=== PATIENT | female | born 1995 | race Caucasian/White ===

== ENCOUNTER 2022-05-08 18:08 | Outpatient (REF) | payer OTHER, SELFPAY ==
[2022-05-08 21:20] LABS: Anion Gap 7.5 mmol/L (3-11); BUN 7 mg/dL (7-18); CO2 30.5 mmol/L (21.0-32.0); CREATININE 0.9 mg/dL (0.55-1.02); Calcium 9.6 mg/dL (8.5-10.1); Chloride 102 mmol/L (98-107); Estimated GFR 90.98 (mL/min/1.73m2); Glucose 108 mg/dL (74-106); Sodium 140 mmol/L (136-145)
== END 2022-05-08 18:09 | disposition home or self-care (01) ==
LOC: NCHCN 18:08
PROVIDERS: Visit Provider Registered Nurse
DX: R00.2 Palpitations (principal); Z79.899 Other long term (current) drug therapy
CPT/HCPCS: 80048

== ENCOUNTER 2023-07-30 17:02 | Outpatient (REF) | payer OTHER, SELFPAY ==
[2023-07-30 20:53] LABS: Anion Gap 10.2 mmol/L (3-11); BUN 8 mg/dL (7-18); CO2 26.8 mmol/L (21.0-32.0); CREATININE 0.9 mg/dL (0.55-1.02); Calcium 9.2 mg/dL (8.5-10.1); Chloride 105 mmol/L (98-107); Estimated GFR 89.86 (mL/min/1.73m2); Glucose 109 mg/dL (74-106); Potassium 3.8 mmol/L (3.5-5.1); Sodium 142 mmol/L (136-145)
== END 2023-07-30 17:03 | disposition home or self-care (01) ==
LOC: NCHCN 17:02
PROVIDERS: Visit Provider Family Medicine
DX: Z01.818 Encounter for other preprocedural examination (principal)
CPT/HCPCS: 80048

== ENCOUNTER 2024-07-26 20:23 | Outpatient (REF) | payer BC, SELFPAY ==
[2024-07-26 22:25] LABS: HCT 45.2 % (36.0-46.0); HGB 15.3 g/dL (11.2-15.7); MCHC 33.8 % (32.0-36.0); MCV 92 fL (80-95); MPV 9.5 fL (8.0-11.0); Platelet Count 295 10^3/uL (130-400); RBC 4.93 10^6/uL (3.93-5.22); RDW 11.9 % (11.7-14.6); RDW-SD 39.8 fL; WBC 8.05 10^3/uL (4.4-10.8)
[2024-07-26 22:26] LABS: ESR < 1 mm/hr (0-20)
[2024-07-27 18:19] LABS: CRP, High Sensitivity 0.83 mg/L (See Note); Rheumatoid Factor <8.6 IU/mL (<12.0)
[2024-07-28 10:44] LABS: Lyme Ab w Rflx to Lyme Confirm Negative (Negative)
[2024-07-28 14:25] LABS: ANA Interpretation Negative (Negative)
== END 2024-07-26 20:24 | disposition home or self-care (01) ==
LOC: NCHCN 20:23
PROVIDERS: Visit Provider Family Medicine
DX: M25.511 Pain in right shoulder (principal); M25.512 Pain in left shoulder
CPT/HCPCS: 85027; 85652; 86141; 86038; 86431; 86618

== ENCOUNTER 2024-11-01 15:39 | Outpatient (REF) | payer BC, SELFPAY ==
[2024-11-01 21:05] LABS: Abs Immature Grans 0.01 10^3/uL (0.0-0.06); HCT 45.6 % (36.0-46.0); HGB 15.3 g/dL (11.2-15.7); Immature Grans % 0.2 %; MCH 30.2 pg (27.0-33.0); MCHC 33.6 % (32.0-36.0); MCV 90 fL (80-95); MPV 9.7 fL (8.0-11.0); Platelet Count 283 10^3/uL (130-400); RBC 5.06 10^6/uL (3.93-5.22); RDW 11.5 % (11.7-14.6); RDW-SD 37.8 fL; WBC 5.28 10^3/uL (4.4-10.8)
[2024-11-01 21:26] LABS: C-Reactive Protein < 0.50 mg/dL (<or=0.5); TSH (W/Ref FT4) 1.34 uIU/mL (0.36-3.74)
[2024-11-01 22:00] LABS: Vitamin D 25 Total 36 ng/mL (30-100)
== END 2024-11-01 15:40 | disposition home or self-care (01) ==
LOC: NCHCN 15:39
PROVIDERS: Visit Provider Family Medicine
DX: M79.10 Myalgia, unspecified site (principal); R53.83 Other fatigue
CPT/HCPCS: 82306; 84443; 85025; 86140